=== PATIENT | male | born 1970 | race Caucasian/White ===

== ENCOUNTER 2017-11-29 07:30 | Inpatient (IN) | payer OTHER ==
[~2017-11-29] VITALS: Ht 172.7 cm; Wt 93.0 kg
[~2017-11-29 07:30] MED LIST: LIPITOR40 MG ORAL; NAPROXEN500 M2 ORAL; NORCO 5-325 TA1 EACH ORAL; UNISOM SLEEP AI25 MG PO
[2018-01-04 06:19] VITALS: BP 123/82
[2018-01-04] MEDS ORDERED: ZOLPIDEM TARTRA10 MG ORAL (06:41)
[2018-01-04] MEDS ORDERED: CLONAZEPAM2 MG PO (06:41)
--- NOTE | 2018-01-04 06:51 | Anethesia Preoperative Eval ---
Anesthesia Pre-op PMH/ROS General Date of Evaluation: January 04, 2018 Time of Evaluation: 07:15 Anesthesiologist: ASA Score: ASA 2 Mallampati Score Class I : Soft palate, uvula, fauces, pillars visible Class II: Soft palate, uvula, fauces visible Class III: Soft palate, base of uvula visible Class IV: Only hard plate visible Mallampati Classification: Class II Surgeon: brittnee Diagnosis: back pain Anesthesia History: none Family History: no anesthesia problems Allergies: Coded Allergies: No Known Allergies (Unverified , 01/04/18) Past Medical History Cardiovascular: Reports: arrhythmia - h/o SVT; Denies: HTN, CAD, NC, valve dz, other Pulmonary: Denies: asthma, COPD, KERVIN, other Gastrointestinal/Genitourinary: Denies: GERD, CRI, ESRD, other Neurologic/Psychiatric: Reports: depression/anxiety; Denies: dementia, CVA, TIA, other Endocrine: Denies: DM, hypothyroidism, steroids, other HEENT: Denies: cataract (L), cataract (R), glaucoma, SH[place]HONE-[place] (L), SHOSHONE-[place] (R), other Hematology/Immune: Denies: anemia, DVT, bleeding disorder, other Musculoskeletal/Integumentary: Denies: OA, RA, DJD, DDD, edema, other PSxH Narrative: laminectomy 2016 Anesthesia Pre-op Phys. Exam Physician Exam Last Vital Signs Date Time Temp Pulse Resp B/P (MAP) Pulse Ox O2 Delivery O2 Flow Rate FiO2 01/04/18 06:19 98.0 73 18 123/82 97 Room Air 98.0 Constitutional: NAD Cardiovascular: RRR Respiratory: CTA Gastrointestinal: S/NT/ND Airway Exam Mallampati Score: Class II MO: full ROM: full Teeth: intact, other - implants x 2 teeth Dentures: no upper, no lower Anesthesia Pre-op A/P Labs all WNL Studies Pre-op Studies: EKG - normal Risk Assessment & Plan Assessment: ASA 2, okay to proceed Plan: Lisa Osorio M.D. January 04, 2018 06:51
[2018-01-04] MEDS ORDERED: Lidocaine 1% MPF 10mg/ml 5ml ONE (06:53)
[2018-01-04] MEDS ORDERED: Ketorolac 30mg Inj ONE (06:53)
[2018-01-04] MEDS ORDERED: Dexamethasone 4mg/ml vial ONE (06:53)
[2018-01-04] MEDS ORDERED: Propofol 200mg/20ml IV ONE (06:53)
[2018-01-04] MEDS ORDERED: Sugammadex Sodium 200mg/2ml vial IV ONE (07:00)
[2018-01-04] MEDS ORDERED: ceFAZolin sod 2 GM in D5W 110 ML IVPB ONE (07:00)
[2018-01-04] MEDS ORDERED: Zemuron 50mg/5ml Inj IV ONE (07:00)
[2018-01-04] MEDS ORDERED: Vancomycin 1gm inj IVPB ONE (07:19)
[2018-01-04] MEDS ORDERED: EPINEPHrine 1mg/1ml Amp ONE (07:19)
[2018-01-04] MEDS ORDERED: Thrombin 5000 units TOPIC ONE (07:19)
[2018-01-04] MEDS ORDERED: Bupivacaine 0.5% Inj 30 ml vial INJ ONE (07:20)
[2018-01-04] MEDS ORDERED: Bacitracin 50000 Units Vial ONE ×2 (07:20→07:30)
--- NOTE | 2018-01-04 07:22 | Pre-Procedure Note/Attestation ---
Pre-Procedure Note/Attestation Complete Prior to Procedure Procedure Narrative: Reexploration L5S1 with decompression, instrumentation, interbody fusion, posterolateral fusion, allograft, bone marrow aspirate Indications for Procedure Pre-Operative Diagnosis: lumbar spondylosis and stenosis with disc protrusion l5s1 Attestation I attest that I discussed the nature of the procedure; its benefits; risks and complications; and alternatives (and the risks and benefits of such alternatives ), prior to the procedure, with the patient (or the patient's legal sales development representative). I attest that, if there was a reasonable possibility of needing a blood transfusion, the patient (or the patient's legal sales development representative) was given the [place] Department of Health Services standardized written summary, pursuant to the [place] Blood Safety Act ([place] Health and Safety Code # 1645, as amended). I attest that I re-evaluated the patient just prior to the surgery and that there has been no change in the patient's H&P, except as documented below: Jeffrey Arellano MD January 04, 2018 07:22
[2018-01-04] MEDS ORDERED: D5 1/2NS 1,000 ML IV SCH (07:23)
[2018-01-04 07:24] LABS: ANION GAP 9 mmol/L (5-15); BLOOD UREA NITROGEN 13 mg/dL (7-18); CALCIUM 8.6 MG/DL (8.5-10.1); CARBON DIOXIDE 25 MMOL/L (21-32); CHLORIDE 105 MMOL/L (98-107); POTASSIUM 3.8 MMOL/L (3.5-5.1); SODIUM 139 MMOL/L (136-145)
[2018-01-04] MEDS ORDERED: fentaNYL 100 mcg/2 mL IV ONE (07:26)
[2018-01-04] MEDS ORDERED: Midazolam 2mg/2ml Inj ONE (07:26)
[2018-01-04] MEDS ORDERED: Morphine Sulfate 4mg/ml Inj SUBQ PRN ×2 (07:30)
[2018-01-04] MEDS ORDERED: HYDROcodone/Acetamin 7.5/325 tab ORAL PRN ×2 (07:30)
[2018-01-04] MEDS ORDERED: Naloxone 0.4mg/ml Inj IVP PRN (07:30)
[2018-01-04] MEDS ORDERED: Norco 5mg/325mg tab ORAL PRN (07:30)
[2018-01-04 07:32] LABS: BASOPHILS % (AUTO) 1.3 % (0.0-2.0); EOSINOPHILS % (AUTO) 1.7 % (0.0-3.0); HEMATOCRIT 46.6 % (42.0-52.0); HEMOGLOBIN 16.4 G/DL (14.2-18.0); LYMPHOCYTES % (AUTO) 32.6 % (20.0-45.0); MEAN CORPUSCULAR VOLUME 90 FL (80-99); MONOCYTES % (AUTO) 7.2 % (1.0-10.0); NEUTROPHILS % (AUTO) 57.3 % (45.0-75.0); PLATELET COUNT 195 K/UL (150-450); RED BLOOD COUNT 5.19 M/UL (4.70-6.10); RED CELL DISTRIBUTION WIDTH 11.7 % (11.6-14.8); WHITE BLOOD COUNT 8.8 K/UL (4.8-10.8)
[2018-01-04 08:00] VITALS: BP 127/76
[2018-01-04] MEDS ORDERED: Docusate 100mg cap ORAL SCH (09:00)
[2018-01-04] MEDS ORDERED: ceFAZolin sod 1 GM in D5W 55 ML IV SCH (14:00)
[2018-01-09] VITALS (13 sets, daily range): BP systolic 101–130; BP diastolic 57–87
[2018-01-09] MEDS ORDERED: Zemuron 50mg/5ml Inj IV ONE (06:13)
[2018-01-09] MEDS ORDERED: LR 1000ml 1,000 ML IVLG SCH (06:32)
[2018-01-09] MEDS ORDERED: Bupivacaine 0.5% Inj 30 ml vial INJ ONE (06:34)
[2018-01-09] MEDS ORDERED: Thrombin 5000 units TOPIC ONE ×2 (06:34→08:05)
[2018-01-09] MEDS ORDERED: EPINEPHrine 1mg/1ml Amp ONE (06:34)
[2018-01-09] MEDS ORDERED: Vancomycin 1gm inj IVPB ONE (06:34)
[2018-01-09] MEDS ORDERED: Bacitracin 50000 Units Vial ONE ×2 (06:35→11:47)
[2018-01-09] MEDS ORDERED: Dexamethasone 4mg/ml vial ONE (06:40)
[2018-01-09] MEDS ORDERED: Lidocaine 1% MPF 10mg/ml 5ml ONE (06:40)
[2018-01-09] MEDS ORDERED: Sodium Chloride 10ml vial INJ ONE ×2 (06:40→08:07)
[2018-01-09] MEDS ORDERED: Hydromorphone 0.5mg/0.5ml inj IVP PRN ×2 (06:45→15:30)
[2018-01-09] MEDS ORDERED: DiphenhydrAMINE 50mg/ml Inj IVP PRN ×2 (06:45→20:00)
[2018-01-09] MEDS ORDERED: Ketorolac 30mg Inj IV PRN ×2 (06:45)
[2018-01-09] MEDS ORDERED: fentaNYL 100 mcg/2 mL IV PRN (06:45)
[2018-01-09] MEDS ORDERED: oxyCODONE HCL/Acetaminophen 5/325mg ORAL PRN (06:45)
[2018-01-09] MEDS ORDERED: Metoclopramide 10mg/2ml Inj IVP PRN (06:45)
[2018-01-09] MEDS ORDERED: HYDROcodone/Acetamin 7.5/325 tab ORAL PRN ×3 (06:45→07:00)
[2018-01-09] MEDS ORDERED: Norco 5mg/325mg tab ORAL PRN ×2 (06:45→07:00)
[2018-01-09] MEDS ORDERED: Acetaminophen (Non formulary) 100 ML IV ONE (06:45)
[2018-01-09] MEDS ORDERED: Labetalol 5mg/ml 20ml vial IV PRN (06:45)
[2018-01-09] MEDS ORDERED: LORazepam Inj 2mg/ml 1ml IV PRN (06:45)
[2018-01-09] MEDS ORDERED: Midazolam 2mg/2ml Inj IVP PRN (06:45)
[2018-01-09] MEDS ORDERED: Atropine Inj 1mg/10ml Syr IV PRN (06:45)
--- NOTE | 2018-01-09 06:49 | Anethesia Preoperative Eval ---
Anesthesia Pre-op PMH/ROS General Date of Evaluation: January 09, 2018 Time of Evaluation: 06:51 Anesthesiologist: Guero ASA Score: ASA 3 Mallampati Score Class I : Soft palate, uvula, fauces, pillars visible Class II: Soft palate, uvula, fauces visible Class III: Soft palate, base of uvula visible Class IV: Only hard plate visible Mallampati Classification: Class II Surgeon: Adan Diagnosis: Back Pain Surgical Procedure: TLIF L5-S1 Anesthesia History: none Family History: no anesthesia problems Allergies: Coded Allergies: No Known Allergies (Unverified , 01/04/18) Medications: see eMAR Past Medical History Cardiovascular: Reports: arrhythmia - Hx SVT, other - HL Neurologic/Psychiatric: Reports: depression/anxiety Other: obesity - BMI 33 PSxH Narrative: Laminectomy 2016 Anesthesia Pre-op Phys. Exam Physician Exam Last Vital Signs Date Time Temp Pulse Resp B/P (MAP) Pulse Ox O2 Delivery O2 Flow Rate FiO2 01/09/18 06:19 97.6 78 18 126/78 97 Room Air 97.6 Constitutional: NAD Neurologic: CN 2-12 intact Cardiovascular: RRR Respiratory: CTA Gastrointestinal: S/NT/ND Airway Exam Mallampati Score: Class II MO: full ROM: full Teeth: intact Anesthesia Pre-op A/P Risk Assessment & Plan Assessment: ASA 3 Plan: GA, BIS, GlideScope Status Change Before Surgery: No Pre-Antibiotics Dru Grams Ancef IV Given Within 1 Hr of Incision: Yes Time Given: 07:16 Baldev Gray MD January 09, 2018 06:49
[2018-01-09] MEDS ORDERED: fentaNYL 100 mcg/2 mL IV ONE ×4 (06:50→11:56)
--- NOTE | 2018-01-09 06:59 | Pre-Procedure Note/Attestation ---
Pre-Procedure Note/Attestation Complete Prior to Procedure Procedure Narrative: Re-exporation L5-S1 with revision decompression, L5-S1 fusion and instrumentation and interbody fusion Indications for Procedure Pre-Operative Diagnosis: lumbar spondylosis and stenosis with disc protrusion l5s1 Attestation I attest that I discussed the nature of the procedure; its benefits; risks and complications; and alternatives (and the risks and benefits of such alternatives ), prior to the procedure, with the patient (or the patient's legal communications representative). I attest that, if there was a reasonable possibility of needing a blood transfusion, the patient (or the patient's legal communications representative) was given the [place] Department of Health Services standardized written summary, pursuant to the [place] Blood Safety Act ([place] Health and Safety Code # 1645, as amended). I attest that I re-evaluated the patient just prior to the surgery and that there has been no change in the patient's H&P, except as documented below: Jeffrey Arellano MD January 09, 2018 06:59
[2018-01-09] MEDS ORDERED: LR 1000ml ONE (07:00)
[2018-01-09] MEDS ORDERED: Labetalol 5mg/ml 20ml vial IV ONE (07:00)
[2018-01-09] MEDS ORDERED: Naloxone 0.4mg/ml Inj IVP PRN ×2 (07:00→20:30)
[2018-01-09] MEDS ORDERED: Sterile Water Irrig 1000ml IRRIG ONE (07:00)
[2018-01-09] MEDS ORDERED: ceFAZolin sod 2 GM in D5W 110 ML IVPB ONE (07:00)
[2018-01-09] MEDS ORDERED: NS Irrig 1000ml ONE (07:00)
[2018-01-09] MEDS ORDERED: NS Irrig 1000ml IRRIG ONE ×2 (07:00→11:30)
[2018-01-09] MEDS ORDERED: Lidocaine 1% Plain 30 ml INJ ONE ×4 (07:08→11:49)
--- NOTE | 2018-01-09 07:32 | Pre-Procedure Note/Attestation ---
Pre-Procedure Note/Attestation Complete Prior to Procedure Procedure Narrative: Re-exploration L5-S1 with decompression, instrumentation and fusion at L5-S1, interbody fusion and instrumentation with bone marrow aspiration Indications for Procedure Pre-Operative Diagnosis: lumbar spondylosis and stenosis with disc protrusion l5s1 Attestation I attest that I discussed the nature of the procedure; its benefits; risks and complications; and alternatives (and the risks and benefits of such alternatives ), prior to the procedure, with the patient (or the patient's legal loan representative). I attest that, if there was a reasonable possibility of needing a blood transfusion, the patient (or the patient's legal loan representative) was given the [place] Department of Health Services standardized written summary, pursuant to the [place] Blood Safety Act ([place] Health and Safety Code # 1645, as amended). I attest that I re-evaluated the patient just prior to the surgery and that there has been no change in the patient's H&P, except as documented below: Jeffrey Arellano MD January 09, 2018 07:32
--- NOTE | 2018-01-09 08:32 | Immediate Post-Op Evaluation ---
Immediate Post-Op Evalulation Immediate Post-Op Evalulation Procedure: TLIF L5-S1 Date of Evaluation: January 09, 2018 Time of Evaluation: 14:20 IV Fluids: 2000 LR Blood Products: 1000 Alb Estimated Blood Loss: 1000 Urinary Output: 800 Blood Pressure Systolic: 122 Blood Pressure Diastolic: 75 Pulse Rate: 83 Respiratory Rate: 16 O2 Sat by Pulse Oximetry: 98 Pain Score (1-10): 3 Nausea: No Vomiting: No Complications 0 Patient Status: awake, reacts, patent, extubated, none Hydration Status: adequate Dru Grams Ancef IV Given Within 1 Hr of Incision: Yes Time Given: 07:16 Baldev Gray MD January 09, 2018 08:32
[2018-01-09] MEDS ORDERED: Tranexamic Acid 1,000 MG in NS 55 ML IVPB ONE (10:30)
[2018-01-09] MEDS ORDERED: Propofol 200mg/20ml IV ONE (11:50)
[2018-01-09 12:31] LABS: HEMOGLOBIN 14.2 G/DL (14.2-18.0); MEAN CORPUSCULAR VOLUME 92 FL (80-99); PLATELET COUNT 187 K/UL (150-450); RED BLOOD COUNT 4.48 M/UL (4.70-6.10); RED CELL DISTRIBUTION WIDTH 11.8 % (11.6-14.8); WHITE BLOOD COUNT 11.5 K/UL (4.8-10.8)
--- NOTE | 2018-01-09 13:55 | Brief Operative Note ---
Immediate Post Operative Note Operative Note Pre-op Diagnosis: lumbar spondylosis and stenosis with disc protrusion l5s1 Post-op Diagnosis: same as pre-op Findings: consistent w/pre-op dx studies Surgeon: MADDIE Comprehensive Ophthalmologist: MINH Anesthesiologist: NEIL Anesthesia: general Specimen: yes Complications: none Condition: stable Fluids: 2000 CC CRYSTALLOID AND 1000CC ALBUMIN Estimated Blood Loss: volume - 1000CC Drains: hemovac Implant(s) used?: Yes Jeffrey Arellano MD January 09, 2018 13:55
[2018-01-09 14:34] LABS: HEMATOCRIT 36.1 % (42.0-52.0); HEMOGLOBIN 12.3 G/DL (14.2-18.0); MEAN CORPUSCULAR VOLUME 93 FL (80-99); PLATELET COUNT 168 K/UL (150-450); RED CELL DISTRIBUTION WIDTH 11.7 % (11.6-14.8); WHITE BLOOD COUNT 13.9 K/UL (4.8-10.8)
--- NOTE | 2018-01-09 14:38 | Diagnostic Imaging Report ---
Indication: Back pain Comparison: None Findings: 2 fluoroscopic views of the lumbar spine were obtained. Fluoroscopic time 111 seconds. Lower lumbar fusion demonstrated at L5-S1 with pedicle screws and fusion rods. IMPRESSION: Intraoperative imaging
[2018-01-09 15:11] LABS: ANION GAP 13 mmol/L (5-15); BLOOD UREA NITROGEN 14 mg/dL (7-18); CALCIUM 7.8 MG/DL (8.5-10.1); CARBON DIOXIDE 21 MMOL/L (21-32); CHLORIDE 104 MMOL/L (98-107); CREATININE 1.2 MG/DL (0.55-1.30); SODIUM 138 MMOL/L (136-145)
[2018-01-09] MEDS ORDERED: Hydromorphone 0.5mg/0.5ml inj ONE (15:29)
[2018-01-09] MEDS: Docusate 100mg cap ORAL SCH ×2 (17:36→17:45)
[2018-01-09] MEDS: D5 1/2NS 1,000 ML IV SCH (17:41)
[2018-01-09] MEDS: ceFAZolin sod 1 GM in D5W 110 ML IV SCH (20:30)
[2018-01-09] MEDS ORDERED: Morphine Sulfate 2mg/ml Inj IV PRN (20:30)
[2018-01-09] MEDS ORDERED: Rate Change PCA 1 Each MISC PRN (20:30)
[2018-01-09] MEDS: PCA Morphine 1mg/ml 30 ML IV PRN (20:33)
[2018-01-09] MEDS ORDERED: PCA Education Pamphlet MISC ONE (21:00)
[2018-01-09] MEDS: Morphine Sulfate 4mg/ml Inj SUBQ PRN (23:07)
[2018-01-10] VITALS: BP 105/60
[2018-01-10] MEDS: D5 1/2NS 1,000 ML IV SCH ×3 (04:19→22:39)
[2018-01-10 04:29] VITALS: BP 111/69
[2018-01-10] MEDS: Morphine Sulfate 4mg/ml Inj SUBQ PRN ×4 (05:24→21:23)
[2018-01-10] MEDS: ceFAZolin sod 1 GM in D5W 110 ML IV SCH ×2 (05:24→13:47)
[2018-01-10 05:29] LABS: BASOPHILS % (AUTO) 0.4 % (0.0-2.0); EOSINOPHILS % (AUTO) 0.1 % (0.0-3.0); HEMATOCRIT 33.5 % (42.0-52.0); HEMOGLOBIN 11.3 G/DL (14.2-18.0); LYMPHOCYTES % (AUTO) 10.6 % (20.0-45.0); MEAN CORPUSCULAR VOLUME 93 FL (80-99); MONOCYTES % (AUTO) 5.8 % (1.0-10.0); NEUTROPHILS % (AUTO) 83.2 % (45.0-75.0); PLATELET COUNT 154 K/UL (150-450); RED BLOOD COUNT 3.62 M/UL (4.70-6.10); RED CELL DISTRIBUTION WIDTH 11.7 % (11.6-14.8); WHITE BLOOD COUNT 13.7 K/UL (4.8-10.8)
[2018-01-10] MEDS: PCA shift volume MISC SCH ×2 (07:29→19:00)
[2018-01-10] MEDS: PCA Morphine 1mg/ml 30 ML IV PRN ×2 (07:35→22:10)
[2018-01-10 08:00] VITALS: BP 115/68
[2018-01-10] MEDS: Docusate 100mg cap ORAL SCH ×2 (08:15→17:18)
--- NOTE | 2018-01-10 10:34 | 48 Hour Post Anesthesia Eval ---
Post Anesthesia Evaluation Procedure: TLIF L5-S1 Date of Evaluation: January 10, 2018 Blood Pressure Systolic: 111 0: 69 Pulse Rate: 86 Respiratory Rate: 18 Temperature (Fahrenheit): 97.6 O2 Sat by Pulse Oximetry: 98 Airway: patent Nausea: No Vomiting: No Pain Intensity: 2 Hydration Status: adequate Cardiopulmonary Status: at baseline Mental Status/LOC: patient returned to baseline Post-Anesthesia Complications: 0 Follow-up care needed: N/A - further care as per primary team SANDRA RYAN M.D. January 10, 2018 10:34
[2018-01-10 12:00] VITALS: BP 134/71
[2018-01-10] MEDS ORDERED: Morphine Sulfate 4mg/ml Inj IV PRN (13:00)
--- NOTE | 2018-01-10 13:00 | History and Physical ---
History of Present Illness General Date patient seen: January 10, 2018 Present Illness HPI 47 year old male with hx of SVT, lumbar spondylosis and stenosis with disc protrusion L5S1, presented for surgical intervention. Pt is admitted postoperative to surgical floor for postop care. Allergies: Coded Allergies: No Known Allergies (Unverified , 01/04/18) Medication History Scheduled Clonazepam (Clonazepam), 2 MG PO DAILY, (Reported) Scheduled PRN Zolpidem Tartrate* (Zolpidem Tartrate*), 10 MG ORAL BEDTIME PRN for Insomnia, ( Reported) Discontinued Medications Atorvastatin Calcium* (Lipitor*), 40 MG ORAL DAILY, (Reported) Discontinued Reason: Pt stopped taking med Doxylamine Succinate (Unisom Sleep Aid), 25 MG PO PRN, (Reported) Discontinued Reason: Pt stopped taking med Hydrocodone Bit/Acetaminophen 5-325* ([place] 5-325*), 1 TAB ORAL Q6H PRN for For Pain, (Reported) Discontinued Reason: Pt stopped taking med Naproxen* (Naproxen*), 500 MG ORAL TWICE A DAY PRN for For Pain, (Reported) Discontinued Reason: Pt stopped taking med Patient History Healthcare decision maker belinda() Resuscitation status Full Code Advanced Directive on File Yes Past Medical/Surgical History Past Medical/Surgical History: (1) SVT (supraventricular tachycardia) (2) Lumbar radiculopathy Review of Systems All Other Systems: negative except mentioned in HPI Physical Exam General Appearance: WD/WN Lines, tubes and drains: peripheral HEENT: normocephalic, atraumatic Neck: non-tender, normal alignment Respiratory/Chest: chest wall non-tender, lungs clear Breasts: no masses Cardiovascular/Chest: normal peripheral pulses Abdomen: normal bowel sounds, non tender Genitourinary/Rectal: normal genital exam Skin Exam: normal pigmentation Last 24 Hour Vital Signs Date Time Temp Pulse Resp B/P (MAP) Pulse Ox O2 Delivery O2 Flow Rate FiO2 01/10/18 12:39 97.6 01/10/18 10:34 207.7 86 18 98 01/10/18 08:19 97.6 01/10/18 08:00 98.1 79 18 115/68 98 98.1 01/10/18 07:40 18 01/10/18 07:40 18 5/30/18 07:35 97.6 01/10/18 04:29 97.6 86 18 111/69 98 97.6 01/10/18 04:00 18 01/10/18 00:00 97.6 79 20 105/60 96 97.6 01/09/18 23:07 97.7 01/09/18 20:24 97.7 82 19 101/57 97 97.7 01/09/18 18:58 97.6 01/09/18 17:37 97.6 01/09/18 17:30 97.7 86 18 126/65 97 Nasal Cannula 3.0 97.7 01/09/18 16:30 97.6 87 18 130/65 96 Nasal Cannula 3.0 97.6 01/09/18 16:15 97.2 91 18 108/66 96 Nasal Cannula 3.0 97.2 01/09/18 15:30 93 16 115/76 97 Nasal Cannula 3.0 01/09/18 15:16 98.6 93 16 110/76 97 Nasal Cannula 3.0 98.6 01/09/18 15:00 93 16 112/76 98 Nasal Cannula 3.0 01/09/18 14:45 91 16 110/74 98 Simple Mask 8.0 01/09/18 14:30 92 16 112/73 98 Simple Mask 8.0 01/09/18 14:19 92 16 116/87 98 Simple Mask 8.0 01/09/18 14:14 94 16 122/81 98 Simple Mask 8.0 01/09/18 14:10 83 16 98 01/09/18 14:09 98.5 76 16 122/75 98 Simple Mask 8.0 98.5 Intake and Output 01/09/18 01/10/18 19:00 07:00 Intake Total 3800 ml 880 ml Output Total 2340 ml 2500 ml Balance 1460 ml -1620 ml Intake Oral 480 ml IV Total 2800 ml 400 ml Other 1000 ml Output Urine Total 1200 ml 2500 ml Drainage Total 140 ml Estimated Blood Loss 1000 ml # Voids 3 Laboratory Tests Test 01/09/18 14:20 01/10/18 05:05 White Blood Count 13.9 K/UL (4.8-10.8) H 13.7 K/UL (4.8-10.8) H Red Blood Count 3.90 M/UL (4.70-6.10) L 3.62 M/UL (4.70-6.10) L Hemoglobin 12.3 G/DL (14.2-18.0) L 11.3 G/DL (14.2-18.0) L Hematocrit 36.1 % (42.0-52.0) L 33.5 % (42.0-52.0) L Mean Corpuscular Volume 93 FL (80-99) 93 FL (80-99) Mean Corpuscular Hemoglobin 31.5 PG (27.0-31.0) H 31.2 PG (27.0-31.0) H Mean Corpuscular Hemoglobin Concent 34.1 G/DL (32.0-36.0) 33.6 G/DL (32.0-36.0) Red Cell Distribution Width 11.7 % (11.6-14.8) 11.7 % (11.6-14.8) Platelet Count 168 K/UL (150-450) 154 K/UL (150-450) Mean Platelet Volume 8.6 FL (6.5-10.1) 9.9 FL (6.5-10.1) Neutrophils (%) (Auto) % (45.0-75.0) 83.2 % (45.0-75.0) H Lymphocytes (%) (Auto) % (20.0-45.0) 10.6 % (20.0-45.0) L Monocytes (%) (Auto) % (1.0-10.0) 5.8 % (1.0-10.0) Eosinophils (%) (Auto) % (0.0-3.0) 0.1 % (0.0-3.0) Basophils (%) (Auto) % (0.0-2.0) 0.4 % (0.0-2.0) Differential Total Cells Counted 100 Neutrophils % (Manual) 88 % (45-75) H Lymphocytes % (Manual) 10 % (20-45) L Monocytes % (Manual) 1 % (1-10) Eosinophils % (Manual) 1 % (0-3) Basophils % (Manual) 0 % (0-2) Band Neutrophils 0 % (0-8) Platelet Estimate Adequate Platelet Morphology Normal Red Blood Cell Morphology Normal Sodium Level 138 MMOL/L (136-145) Potassium Level 5.0 MMOL/L (3.5-5.1) Chloride Level 104 MMOL/L (98-107) Carbon Dioxide Level 21 MMOL/L (21-32) Anion Gap 13 mmol/L (5-15) Blood Urea Nitrogen 14 mg/dL (7-18) Creatinine 1.2 MG/DL (0.55-1.30) Estimat Glomerular Filtration Rate > 60 mL/min (>60) Glucose Level 151 MG/DL (74-106) H Calcium Level 7.8 MG/DL (8.5-10.1) L Height (Feet): 5 Height (Inches): 8.00 Weight (Pounds): 205 Medications Current Medications Medications (Trade) Dose Ordered Sig/Jacobo Route PRN Reason Start Time Stop Time Status Last Admin Dose Admin Acetaminophen/ Hydrocodone Bitart ([place] 5/325) 1 tab Q3H PRN ORAL pain score 1-3 01/11/18 20:30 01/18/18 20:29 Acetaminophen/ Hydrocodone Bitart ([place] 7.5/325) 1 tab Q3H PRN ORAL pain score 4-6 01/11/18 20:30 01/18/18 20:29 Acetaminophen/ Hydrocodone Bitart ([place] 7.5/325) 2 tab Q3H PRN ORAL pain scale 7-10 01/11/18 20:30 01/18/18 20:29 Cefazolin Sodium 1 gm/Dextrose 110 ml @ 220 mls/hr Q8H IV 01/09/18 22:00 01/10/18 14:29 01/10/18 05:24 Clonazepam (KlonoPIN) 2 mg DAILY ORAL 01/10/18 09:00 01/17/18 08:59 01/10/18 08:16 Dextrose/Sodium Chloride 1,000 ml @ 100 mls/hr Q10H IV 01/09/18 17:30 02/08/18 17:29 01/10/18 04:19 Diphenhydramine HCl (Benadryl) 25 mg Q6H PRN IVP Itching/Pruritis 01/09/18 20:00 01/11/18 19:59 Docusate Sodium (Colace) 100 mg TWICE A DAY ORAL 01/09/18 09:00 02/08/18 08:59 01/10/18 08:15 Miscellaneous Medication (GETTER WELDER Rate Change) 1 ea DAILY PRN MISC rate change 01/09/18 20:30 01/11/18 20:29 Miscellaneous Medication (GETTER WELDER shift volume) 1 ea Q12HR@0700,1900 MISC 01/10/18 07:00 01/12/18 06:59 01/10/18 07:29 Morphine Sulfate 30 ml @ 0 mls/hr Q24H PRN IV For Pain 01/09/18 20:30 01/11/18 20:29 01/10/18 07:35 Morphine Sulfate (Morphine Sulfate) 2 mg Q2H PRN IV Moderate Pain (Pain Scale 4-6) 01/09/18 20:30 01/11/18 20:29 Morphine Sulfate (Morphine Sulfate) 4 mg Q3H PRN SUBQ Severe Pain (Pain Scale 7-10) 01/09/18 20:30 01/11/18 20:29 01/10/18 12:39 Naloxone HCl (Narcan) 0.1 mg PRN PRN IVP RR<12/min, pt unarousable 01/11/18 20:30 02/10/18 20:29 Naloxone HCl (Narcan) 0.1 mg Q1M PRN IVP RR<10/min OR SBP<90 mmHg 01/09/18 20:30 01/11/18 20:29 Nicotine (Nicoderm) 1 patch Q24H TDERMAL 01/09/18 20:00 02/08/18 19:59 01/09/18 20:31 Ondansetron HCl (Zofran) 4 mg Q6H PRN IVP Nausea & Vomiting 01/09/18 20:00 01/11/18 19:59 01/10/18 04:20 Zolpidem Tartrate (Ambien) 5 mg HSPRN PRN ORAL Insomnia 01/09/18 17:15 01/16/18 17:14 Assessment/Plan Problem List: (1) Lumbar radiculopathy ICD Codes: M54.16 - Radiculopathy, lumbar region SNOMED: [id number] Assessment/Plan titrate pain meds symptomatic treatment dvt prophylaxis Ian Kulkarni MD January 10, 2018 13:00
[2018-01-10 16:00] VITALS: BP 150/49
--- NOTE | 2018-01-10 18:27 | General Progress Note ---
Progress Note Progress Note doing well post op. No leg pain or paresthesias. gretchen diet. avss a and o times 3 dressing cdi 5/5 motor in mily ue and the le lt intact hv 150 a: doing well post op p: oob pt brace labs medicine follow up follow up tomorrow Jeffrey Arellano MD January 10, 2018 18:27
[2018-01-10 20:00] VITALS: BP 128/84
[2018-01-10] MEDS: Zolpidem 5mg tab ORAL PRN (20:22)
[2018-01-11] VITALS: BP 127/80
--- NOTE | 2018-01-11 01:00 | Operative Note - Dictated ---
DATE OF OPERATION: 01/09/2018 PREOPERATIVE DIAGNOSIS: Status post decompression at L5-S1 with recurrent disk protrusion, annular tear and disk height collapse with stenosis and lower extremity radiculopathy. POSTOPERATIVE DIAGNOSIS: Status post decompression at L5-S1 with recurrent disk protrusion, annular tear and disk height collapse with stenosis and lower extremity radiculopathy. PROCEDURE PERFORMED: 1. Re-exploration laminotomy and foraminotomy, right L5-S1. 2. Pedicle screw instrumentation at L5-S1. 3. Posterolateral arthrodesis at L5-S1. 4. Posterior interbody fusion at L5-S1 with placement of PEEK interbody device. 5. Bone marrow aspiration, right posterior iliac crest for fusion. 6. Placement of allograft and local autograft for fusion. 7. Microscope for microdissection. SURGEON: Jeffrey Arellano M.D. BRIDGE CREW MEMBER: Marlon Soler M.D. ANESTHESIA: General endotracheal anesthesia. ANESTHESIOLOGIST: Baldev Gray M.D. INTRAOPERATIVE FINDINGS: Disk height collapse, spondylosis, disk protrusion, stenosis at L5-S1. EBL: 1000 mL. FLUIDS: 2000 mL of crystalloid and 1000 mL of albumin. INDICATIONS: This is a pleasant gentleman who has failed nonoperative treatments after the lumbar microdiscectomy and continued to have severe intractable low back pain and lower extremity radiculopathy. My recommendation for the above was given. The patient wished to proceed. Risks, alternatives and benefits were discussed with the patient. Risks include, but are not limited to, anesthesia complications including , medical complications, including bleeding, infection, neurovascular injury, liver failure, kidney failure, myocardial infarction, CSF leak, dural tear, pars fracture, instability, reherniation, and pseudarthrosis, screw cutoff, and screw failure. The patient understood and wished to proceed. Written and verbal consent was given. DESCRIPTION OF OPERATION: The patient was brought into the operating room, supine on a stretcher. Subsequently, appropriate IV lines were placed and 2 g of Ancef was administered. Anesthesia was induced and the patient was successfully intubated. Sequential compression devices were placed onto the bilateral lower extremities. A Munoz was placed under sterile conditions. SSEP and neurophysiological leads were placed. Stimulus-evoked EMG and dermatome-evoked potentials were also recorded, which remained stable throughout the case. Stimulus evoked EMG revealed safe placement of the pedicle screws as well. At this point, all bony prominences were well padded. The abdomen was assured to lay freely. The patient was turned over onto the Michel frame table. All bony prominences were well padded. Preoperative fluoroscopy was done to plan the incision. A previous incision was found over the midline, which was healed successfully and the skin was cleaned. At this point, the intraoperatively sterilely draped microscope was brought into the field and a midline incision was carried out with a scalpel and with monopolar cautery, a subperiosteal dissection at L5-S1 was carried out. A radiopaque marker was placed at the S1 pedicle level and the L5-S1 level was positively identified. The left L5-S1 laminas were virgin laminas, which had previously not undergone laminotomies. The right L5 and the right S1 lamina had previously had laminotomies. There with extensive epidural scar over the posterior epidural space. Attention now first was diverted to the left L5-S1 interspace. Retractors were set in place. At this point, with the use of microscope as well as a high-speed drill, as well as #2 through #5 Kerrison punches, straight and curved curettes and an inter lumbar laminotomy, medial facetectomy, and removal of the ligamentum flavum was first done including complete decompression of the lateral recess and examination of the dural sac and traversing S1 nerve root was accomplished. At this point, attention was diverted to the facetectomy with a high-speed drill and protection of the neural elements, the superior and inferior facets at L5 and S1 were removed. Complete decompression of the exiting L5 nerve root and beautiful exposure of the transforaminal space. Once the bone was removed, it was harvested for later implantation for arthrodesis and was morcellized for future implantation. Now, attention was diverted to the disk space. Neural elements were carefully medially retracted with a nerve root retractor. With a #11 scalpel, a box incision was made in the disk space and with a straight and curved curette as well as Nick curettes, pituitary rongeur, box curettes, and shaver curettes, a radical diskectomy was done at L5-S1. All endplate cartilage was removed. Disk was removed. Endplate bone was well preserved and with a Morenci probe as well as a band-headed long curved curette, a complete and radical diskectomy was accomplished into the contralateral disk space to the right side. All disk material was removed. The disk was copiously irrigated with triple antibiotic solution and at this point, a trial from the [employer] [place] Fortilink System was placed. A 26 mm x 10 mm x 8 mm in height 6 degree lordotic cage now was chosen and packed with bone morphogenic protein and local autograft and allograft. Please note that previously before the diskectomy, a bone marrow aspiration was done through a separate fascial incision of the right posterior iliac crest and 30 mL of bone marrow aspirate was isolated and spun down for later implantation into the disk space. Once the bone marrow aspiration was spun down, the bone marrow was soaked with the Corrine allograft as well as local autograft. This was initially implanted into the anterior interbody space at L5-S1 including the bone marrow aspiration, the Corrine allograft and local autograft as well as bone morphogenic protein. Once this was completed, now the PEEK interbody spacer measuring 26 x 10 x 8 mm was implanted into the interbody space with good recreation of disk height and apposition against the endplates. The PEEK interbody device was stable and found to be in appropriate position at the L5-S1 level. Once this was accomplished, attention was diverted to placement of pedicle screws. At this point, the mammillary processes at L5 and the inferolateral floor of the superior facet at S1 was found and a high-speed drill was used to make a starting point. With a pedicle finder probe, each pedicle was probed appropriately L5 bilaterally and S1 bilaterally and the center of the pedicles were found. This was done with biplanar fluoroscopy. Please note that the intraoperatively sterilely draped microscope was used for microdissection of neural elements during placement of the interbody fusion device as well as during decompression as well as re-exploration, which would be dictated later on the right side. Now back to the pedicle screws, once the center of the pedicles were found with pedicle finder, a ball-tip probe was used to probe the pedicular hubbard and the hubbard were found to be intact and there were no breaches. Attention was first diverted to the right L5 pedicle. The pedicle was appropriately tapped and a 6.5 x 45 mm pedicle screw from the CoreLink System was successfully placed on the right L5 pedicle. The screw had a good purchase and was in good position via biplanar fluoroscopy. Now, attention was diverted to the left S1 pedicle and a 7.5 x 40 mm CoreLink pedicle screw was placed with good purchase and appropriate positioning via biplanar fluoroscopy. During placement of the S1 screw on the right side, the device which attaches to the pedicle screw was found to be loose, this is the device and not the actual screw. The screw powers was found to be loose and did not appropriately attach to the screw for place. Because the device was not at this point working appropriately, I asked that another pedicle screw system to be brought in, which I previously used and this was the Medacta System. The left L5 screw and the right S1 screw now were placed with the Medacta System. Ball-Tipped probes were again used at the each pedicle that had not yet had a pedicle screw and the following pedicle screws were successfully now placed from the Medacta System on the left L5 7.0 x 40 mm and on the right S1 8.0 x 35 mm. Each screw had appropriate purchase and looked in a good position via biplanar fluoroscopy. Now that the pedicle screws were placed, stimulus evoked EMG of each pedicle screw was done at 18 milliamps of current. There was no conduction into the respective nerve roots. Now, attention was diverted to re-exploration on the right side at L5-S1 with the use of a high-speed drill as well as straight and curved curette and #2 and #3 Kerrison rongeurs. A re-exploration laminotomy and foraminotomy at right L5-S1 level was done. There was extensive amount of scar, which was carefully dissected away from the dural sac and attention was diverted to the exiting right L5 exiting nerve root, which was completely decompressed with the use of #2 and #3 Kerrison punches. Valsalva 40 mmHg was done. There was no CSF leak. The wound was copiously irrigated with triple antibiotic solution. An extensive decortication of the transverse processes and the lateral aspect of the pars on the right side was done for later arthrodesis. The annulotomy site was filled with 4 mL of a fibrin Tisseel glue and now attention was diverted to placement of the rods. Two 40 mm rods were placed from the CoreLink System. They sat into the tulips appropriately. Set screws were placed. Torque device was used to complete the tightening of the set screws. Final AP and lateral fluoroscopy was done revealed all instrumentation to be in good position and now, a posterolateral arthrodesis was done with local autograft, Wythe allograft and note Corrine allograft was placed into the interbody device as well as the interbody space and now posterolateral arthrodesis was done with local autograft and Wythe allograft and bone marrow aspirate. A medium-sized Hemovac drain was placed subfascially. The dorsal lumbar fascia was closed with #1 Vicryl sutures in a watertight fashion. The subdermal and subcuticular layers were closed with 2-0 Vicryl sutures. All sponge, needle and instrument counts were correct. The skin was closed with Dermabond. Sterile dressing tape was placed. The patient was taken to the recovery room in stable condition and was found to be neurovascularly intact, was hemodynamically stable, and admitted to the hospital. Jeffrey Arellano M.D. DR: CLINTON JOB#: [id number] CC: MAYTE
[2018-01-11] MEDS: Morphine Sulfate 4mg/ml Inj SUBQ PRN (03:22)
[2018-01-11 04:00] VITALS: BP 114/69
[2018-01-11 06:22] LABS: BASOPHILS % (AUTO) 0.8 % (0.0-2.0); EOSINOPHILS % (AUTO) 0.8 % (0.0-3.0); HEMATOCRIT 31.4 % (42.0-52.0); HEMOGLOBIN 10.9 G/DL (14.2-18.0); LYMPHOCYTES % (AUTO) 23.3 % (20.0-45.0); MEAN CORPUSCULAR VOLUME 93 FL (80-99); MONOCYTES % (AUTO) 8.2 % (1.0-10.0); PLATELET COUNT 145 K/UL (150-450); RED BLOOD COUNT 3.37 M/UL (4.70-6.10); RED CELL DISTRIBUTION WIDTH 11.9 % (11.6-14.8)
[2018-01-11] MEDS: PCA shift volume MISC SCH ×2 (07:03→19:27)
[2018-01-11 08:00] VITALS: BP 117/73
[2018-01-11] MEDS: PCA Morphine 1mg/ml 30 ML IV PRN ×2 (08:04→18:01)
[2018-01-11] MEDS: Docusate 100mg cap ORAL SCH ×2 (08:30→18:12)
--- NOTE | 2018-01-11 09:58 | General Progress Note ---
Progress Note Progress Note Pt has LBP. No leg pain. gretchen reg diet. leg pain has resolved. avss a and o times 3 inc cdi dressing changed lt intact in the le calves soft and nt ambulating well with pt hg 10.1 a: doing well p: oob and pt with brace labs medicine follow up reg diet social service will need walker at home pain management Jeffrey Arellano MD January 11, 2018 09:58
[2018-01-11 12:00] VITALS: BP 104/71
--- NOTE | 2018-01-11 12:37 | Pulmonology Progress Note ---
Assessment/Plan Problems: (1) Lumbar radiculopathy Assessment/Plan pain management no new complains symptomatic treatment check cbc, in am dvt prophylaxis Subjective Interval Events: pain is better controlled Allergies: Coded Allergies: No Known Allergies (Unverified , 01/04/18) Objective Last 24 Hour Vital Signs Date Time Temp Pulse Resp B/P (MAP) Pulse Ox O2 Delivery O2 Flow Rate FiO2 01/11/18 08:00 98.8 100 20 117/73 95 Room Air 98.8 01/11/18 08:00 18 01/11/18 04:00 97.2 107 20 114/69 97 97.2 01/11/18 03:52 99.2 01/11/18 03:37 18 01/11/18 03:22 99.2 01/11/18 00:00 99.2 109 18 127/80 98 99.2 01/11/18 00:00 18 01/10/18 22:10 18 01/10/18 22:09 18 01/10/18 21:53 97.6 01/10/18 21:23 97.6 01/10/18 20:00 98.0 93 20 128/84 99 Room Air 98.0 01/10/18 20:00 18 01/10/18 17:20 18 01/10/18 17:18 97.6 01/10/18 16:00 18 01/10/18 16:00 98.2 90 20 150/49 99 Room Air 98.2 01/10/18 12:39 97.6 Intake and Output 01/10/18 01/11/18 19:00 07:00 Intake Total 950 ml 1880 ml Output Total 2150 ml 1005 ml Balance -1200 ml 875 ml Intake Oral 850 ml 780 ml IV Total 100 ml 1100 ml Output Urine Total 2100 ml 1000 ml Drainage Total 50 ml 5 ml # Voids 1 2 General Appearance: WD/WN HEENT: normocephalic, atraumatic Respiratory/Chest: lungs clear, normal breath sounds Cardiovascular: normal rate Genitourinary: normal external genitalia Extremities: no cyanosis Skin: no rash Microbiology Date/Time Source Procedure Growth Status 01/09/18 06:00 Nasal Nares MRSA Culture - Final NO METHICILLIN RESISTANT STAPH AUREUS... Complete Laboratory Tests 01/11/18 06:00: White Blood Count 12.0H, Red Blood Count 3.37L, Hemoglobin 10.9L, Hematocrit 31.4L, Mean Corpuscular Volume 93, Mean Corpuscular Hemoglobin 32.3H, Mean Corpuscular Hemoglobin Concent 34.6, Red Cell Distribution Width 11.9, Platelet Count 145L, Mean Platelet Volume 8.1, Neutrophils (%) (Auto) 67.0, Lymphocytes ( %) (Auto) 23.3, Monocytes (%) (Auto) 8.2, Eosinophils (%) (Auto) 0.8, Basophils (%) (Auto) 0.8 Current Medications Medications (Trade) Dose Ordered Sig/Jacobo Route PRN Reason Start Time Stop Time Status Last Admin Dose Admin Acetaminophen/ Hydrocodone Bitart ([place] 5/325) 1 tab Q3H PRN ORAL pain score 1-3 01/11/18 20:30 01/18/18 20:29 Acetaminophen/ Hydrocodone Bitart ([place] 7.5/325) 1 tab Q3H PRN ORAL pain score 4-6 01/11/18 20:30 01/18/18 20:29 Acetaminophen/ Hydrocodone Bitart ([place] 7.5/325) 2 tab Q3H PRN ORAL pain scale 7-10 01/11/18 20:30 01/18/18 20:29 Clonazepam (KlonoPIN) 2 mg DAILY ORAL 01/10/18 09:00 01/17/18 08:59 01/11/18 08:30 Diphenhydramine HCl (Benadryl) 25 mg Q6H PRN IVP Itching/Pruritis 01/09/18 20:00 01/11/18 19:59 Docusate Sodium (Colace) 100 mg TWICE A DAY ORAL 01/09/18 09:00 02/08/18 08:59 01/11/18 08:30 Famotidine (Pepcid) 20 mg DAILY ORAL 01/10/18 13:45 02/09/18 13:44 01/11/18 08:30 Miscellaneous Medication (ENTRY LEVEL ELECTRICAL ENGINEER Rate Change) 1 ea DAILY PRN MISC rate change 01/09/18 20:30 01/11/18 20:29 Miscellaneous Medication (ENTRY LEVEL ELECTRICAL ENGINEER shift volume) 1 ea Q12HR@0700,1900 MISC 01/10/18 07:00 01/12/18 06:59 01/11/18 07:03 Morphine Sulfate 30 ml @ 0 mls/hr Q24H PRN IV For Pain 01/10/18 13:45 01/11/18 13:44 01/11/18 08:04 Morphine Sulfate (Morphine Sulfate) 4 mg Q3H PRN SUBQ Severe Pain (Pain Scale 7-10) 01/09/18 20:30 01/11/18 20:29 01/11/18 03:22 Morphine Sulfate (Morphine Sulfate) 4 mg Q4H PRN IV For Pain 01/10/18 13:00 01/17/18 12:59 Naloxone HCl (Narcan) 0.1 mg PRN PRN IVP RR<12/min, pt unarousable 01/11/18 20:30 02/10/18 20:29 Naloxone HCl (Narcan) 0.1 mg Q1M PRN IVP RR<10/min OR SBP<90 mmHg 01/09/18 20:30 01/11/18 20:29 Nicotine (Nicoderm) 1 patch Q24H TDERMAL 01/09/18 20:00 02/08/18 19:59 01/10/18 20:11 Ondansetron HCl (Zofran) 4 mg Q6H PRN IVP Nausea & Vomiting 01/09/18 20:00 01/11/18 19:59 01/10/18 04:20 Zolpidem Tartrate (Ambien) 5 mg HSPRN PRN ORAL Insomnia 01/09/18 17:15 01/16/18 17:14 01/10/18 20:22 Ian Kulkanri MD January 11, 2018 12:37
[2018-01-11] MEDS ORDERED: Rate Change PCA 1 Each MISC PRN ×2 (14:30→15:00)
[2018-01-11] MEDS ORDERED: PCA Education Pamphlet MISC ONE (14:30)
[2018-01-11] MEDS ORDERED: Morphine Sulfate 4mg/ml Inj SUBQ PRN (15:00)
[2018-01-11 16:00] VITALS: BP 116/78
[2018-01-11] MEDS ORDERED: PCA shift volume MISC SCH (19:00)
[2018-01-11] MEDS: Morphine Sulfate 4mg/ml Inj IV PRN (19:43)
[2018-01-11 20:00] VITALS: BP 109/67
[2018-01-11] MEDS ORDERED: Norco 5mg/325mg tab ORAL PRN (20:30)
[2018-01-11] MEDS ORDERED: HYDROcodone/Acetamin 7.5/325 tab ORAL PRN ×2 (20:30)
[2018-01-11] MEDS ORDERED: Naloxone 0.4mg/ml Inj IVP PRN (20:30)
[2018-01-11] MEDS: Zolpidem 5mg tab ORAL PRN (23:25)
[2018-01-12] VITALS: BP 105/68
[2018-01-12] MEDS: PCA Morphine 1mg/ml 30 ML IV PRN ×2 (01:55→18:34)
[2018-01-12 04:00] VITALS: BP 107/66
[2018-01-12] MEDS: PCA shift volume MISC SCH ×2 (07:00→19:21)
[2018-01-12 08:00] VITALS: BP 116/68
[2018-01-12 08:12] LABS: BASOPHILS % (AUTO) 0.8 % (0.0-2.0); EOSINOPHILS % (AUTO) 0.9 % (0.0-3.0); HEMATOCRIT 30.3 % (42.0-52.0); HEMOGLOBIN 10.6 G/DL (14.2-18.0); LYMPHOCYTES % (AUTO) 24.5 % (20.0-45.0); MEAN CORPUSCULAR VOLUME 92 FL (80-99); MONOCYTES % (AUTO) 8.1 % (1.0-10.0); NEUTROPHILS % (AUTO) 65.7 % (45.0-75.0); PLATELET COUNT 164 K/UL (150-450); RED BLOOD COUNT 3.31 M/UL (4.70-6.10); RED CELL DISTRIBUTION WIDTH 11.7 % (11.6-14.8); WHITE BLOOD COUNT 12.9 K/UL (4.8-10.8)
[2018-01-12 08:24] LABS: ALANINE AMINOTRANSFERASE 25 U/L (12-78); ALBUMIN 2.6 G/DL (3.4-5.0); ALBUMIN/GLOBULIN RATIO 0.8 (1.0-2.7); ALKALINE PHOSPHATASE 37 U/L (46-116); ANION GAP 8 mmol/L (5-15); ASPARTATE AMINO TRANSFERASE 33 U/L (15-37); BILIRUBIN,TOTAL 0.8 MG/DL (0.2-1.0); BLOOD UREA NITROGEN 9 mg/dL (7-18); CALCIUM 7.8 MG/DL (8.5-10.1); CARBON DIOXIDE 28 MMOL/L (21-32); CHLORIDE 99 MMOL/L (98-107); CREATININE 0.9 MG/DL (0.55-1.30); PHOSPHORUS 3.6 MG/DL (2.5-4.9); POTASSIUM 3.1 MMOL/L (3.5-5.1); SODIUM 135 MMOL/L (136-145)
[2018-01-12] MEDS: Docusate 100mg cap ORAL SCH ×2 (08:50→17:35)
[2018-01-12] MEDS ORDERED: Milk of Magnesia 30ml Ud ORAL PRN (10:30)
[2018-01-12 12:00] VITALS: BP 103/67
--- NOTE | 2018-01-12 12:14 | Pulmonology Progress Note ---
Assessment/Plan Problems: (1) Lumbar radiculopathy Assessment/Plan constipated pain management no new complains symptomatic treatment check cbc, in am dvt prophylaxis Subjective ROS Limited/Unobtainable: No Constitutional: Reports: no symptoms HEENT: Repors: no symptoms Respiratory: Reports: no symptoms Allergies: Coded Allergies: No Known Allergies (Unverified , 01/04/18) Objective Last 24 Hour Vital Signs Date Time Temp Pulse Resp B/P (MAP) Pulse Ox O2 Delivery O2 Flow Rate FiO2 01/12/18 08:00 98.2 106 18 116/68 97 98.2 01/12/18 08:00 18 01/12/18 04:00 98.6 106 18 107/66 98 98.6 01/12/18 04:00 18 01/12/18 00:00 98.4 99 18 105/68 95 Room Air 98.4 01/12/18 00:00 18 01/11/18 20:43 17 01/11/18 20:00 98.8 95 18 109/67 95 Room Air 98.8 01/11/18 18:01 98.3 01/11/18 16:00 98.3 100 20 116/78 95 Room Air 98.3 01/11/18 16:00 18 Intake and Output 01/11/18 01/12/18 19:00 07:00 Intake Total 1300 ml 260 ml Output Total 7 ml Balance 1293 ml 260 ml Intake Oral 1200 ml 260 ml IV Total 100 ml Output Urine Total 6 ml Stool Total 1 ml # Voids 2 General Appearance: WD/WN, no acute distress HEENT: normocephalic Respiratory/Chest: chest wall non-tender, lungs clear Cardiovascular: normal peripheral pulses, normal rate Abdomen: normal bowel sounds, soft, non tender Genitourinary: normal external genitalia Extremities: no cyanosis Neurologic/Psychiatric: sign writer letterer or painter II-XII grossly normal Laboratory Tests 01/12/18 05:45: White Blood Count 12.9H, Red Blood Count 3.31L, Hemoglobin 10.6L, Hematocrit 30.3L, Mean Corpuscular Volume 92, Mean Corpuscular Hemoglobin 32.1H, Mean Corpuscular Hemoglobin Concent 35.1, Red Cell Distribution Width 11.7, Platelet Count 164, Mean Platelet Volume 8.8, Neutrophils (%) (Auto) 65.7, Lymphocytes (% ) (Auto) 24.5, Monocytes (%) (Auto) 8.1, Eosinophils (%) (Auto) 0.9, Basophils ( %) (Auto) 0.8, Sodium Level 135L, Potassium Level 3.1L, Chloride Level 99, Carbon Dioxide Level 28, Anion Gap 8, Blood Urea Nitrogen 9, Creatinine 0.9, Estimat Glomerular Filtration Rate > 60, Glucose Level 106, Calcium Level 7.8L, Phosphorus Level 3.6, Magnesium Level 1.5L, Total Bilirubin 0.8, Aspartate Amino Transf (AST/SGOT) 33, Alanine Aminotransferase (ALT/SGPT) 25, Alkaline Phosphatase 37L, Total Protein 5.9L, Albumin 2.6L, Globulin 3.3, Albumin/ Globulin Ratio 0.8L Current Medications Medications (Trade) Dose Ordered Sig/Jacobo Route PRN Reason Start Time Stop Time Status Last Admin Dose Admin Clonazepam (KlonoPIN) 2 mg DAILY ORAL 01/10/18 09:00 01/17/18 08:59 01/12/18 08:51 Docusate Sodium (Colace) 100 mg TWICE A DAY ORAL 01/09/18 09:00 02/08/18 08:59 01/12/18 08:50 Famotidine (Pepcid) 20 mg DAILY ORAL 01/10/18 13:45 02/09/18 13:44 01/12/18 08:51 Magnesium Hydroxide (Mom) 30 ml DAILYPRN PRN ORAL Constipation 01/12/18 10:30 02/11/18 10:29 01/12/18 10:46 Miscellaneous Medication (BIOPHYSICS TEACHER Rate Change) 1 ea DAILY PRN MISC rate change 01/11/18 15:00 01/13/18 14:59 Miscellaneous Medication (BIOPHYSICS TEACHER shift volume) 1 ea Q12HR@0700,1900 MISC 01/11/18 19:00 01/13/18 18:59 01/12/18 07:00 Morphine Sulfate 30 ml @ 0 mls/hr Q24H PRN IV For Pain 01/11/18 15:00 01/13/18 14:59 01/12/18 01:55 Morphine Sulfate (Morphine Sulfate) 4 mg Q3H PRN SUBQ Severe Pain (Pain Scale 7-10) 01/11/18 15:00 01/13/18 14:59 01/12/18 10:38 Morphine Sulfate (Morphine Sulfate) 4 mg Q4H PRN IV For Pain 01/10/18 13:00 01/17/18 12:59 01/11/18 19:43 Naloxone HCl (Narcan) 0.1 mg PRN PRN IVP RR<12/min, pt unarousable 01/11/18 20:30 02/10/18 20:29 Nicotine (Nicoderm) 1 patch Q24H TDERMAL 01/09/18 20:00 02/08/18 19:59 01/11/18 20:40 Zolpidem Tartrate (Ambien) 5 mg HSPRN PRN ORAL Insomnia 01/09/18 17:15 01/16/18 17:14 01/11/18 23:25 Ian Kulkarni MD Jan 12, 2018 12:14
[2018-01-12] MEDS ORDERED: Docusate 100mg cap ORAL SCH (13:00)
[2018-01-12] MEDS: Lactulose 20gm/30ml UDC ORAL SCH ×2 (13:20→17:35)
--- NOTE | 2018-01-12 14:38 | General Progress Note ---
Progress Note Progress Note DOING BETTER TODAY AMBULATING WELL NO LEG PAIN BACK PAIN IMPROVIN NO BM YET AVSS A AND O TIMES 3 INC CDI DRESSING CHANGED LT INTACT CR LESS THAN 2 SEC 5/5 MOTOR IN UE AND THE LE HG 10.6 AND STABLE A: DOING WELL POST OP OOB AND PT WITH BRACE REG DIET INCREASE FLUID INTAKE DC TOMORROW WITH PAIN MEDS FU IN 7 TO 10 DAYS Jeffrey Arellano MD Jan 12, 2018 14:38
[2018-01-12 16:00] VITALS: BP 108/63
[2018-01-12 20:00] VITALS: BP 113/63
[2018-01-12] MEDS: Miralax 17gm pkt ORAL SCH (21:00)
[2018-01-13] VITALS: BP 103/68
[2018-01-13] MEDS: Morphine Sulfate 4mg/ml Inj IV PRN ×3 (00:05→20:10)
[2018-01-13] MEDS: Zolpidem 5mg tab ORAL PRN ×2 (01:30→22:07)
[2018-01-13] MEDS ORDERED: D5NS 1,000 ML IV SCH (02:00)
[2018-01-13 04:00] VITALS: BP 95/48
[2018-01-13] MEDS: PCA shift volume MISC SCH ×2 (07:29→19:24)
[2018-01-13 08:00] VITALS: BP 106/65
[2018-01-13] MEDS: Docusate 100mg cap ORAL SCH ×2 (08:40→17:42)
[2018-01-13] MEDS: Lactulose 20gm/30ml UDC ORAL SCH ×4 (08:41→17:41)
[2018-01-13] MEDS: Sennosides 8.6mg ORAL SCH ×2 (09:00→09:37)
--- NOTE | 2018-01-13 11:01 | Pulmonology Progress Note ---
Assessment/Plan Problems: (1) Lumbar radiculopathy Assessment/Plan still in a lot of pain pain management consult no new complains symptomatic treatment check cbc, in am dvt prophylaxis Subjective ROS Limited/Unobtainable: No Constitutional: Reports: no symptoms HEENT: Repors: no symptoms Respiratory: Reports: no symptoms Allergies: Coded Allergies: No Known Allergies (Unverified , 01/04/18) Objective Last 24 Hour Vital Signs Date Time Temp Pulse Resp B/P (MAP) Pulse Ox O2 Delivery O2 Flow Rate FiO2 01/13/18 08:00 97.8 105 16 106/65 98 97.8 105 01/13/18 08:00 17 01/13/18 04:00 17 01/13/18 04:00 97.5 101 17 95/48 97 Room Air 97.5 01/13/18 00:00 97.6 98 18 103/68 97 Room Air 97.6 01/12/18 20:00 98.7 109 18 113/63 97 Room Air 98.7 01/12/18 20:00 17 01/12/18 16:50 18 01/12/18 16:00 18 01/12/18 16:00 98.7 103 18 108/63 97 98.7 01/12/18 12:00 18 01/12/18 12:00 98.1 94 18 103/67 97 98.1 Intake and Output 01/12/18 01/13/18 19:00 07:00 Output Total 1 ml Balance -1 ml Stool Total 1 ml General Appearance: WD/WN HEENT: normocephalic Respiratory/Chest: chest wall non-tender, normal breath sounds Cardiovascular: normal rate Abdomen: normal bowel sounds, no organomegaly Extremities: no cyanosis, no clubbing Current Medications Medications (Trade) Dose Ordered Sig/Jacobo Route PRN Reason Start Time Stop Time Status Last Admin Dose Admin Clonazepam (KlonoPIN) 2 mg DAILY ORAL 01/10/18 09:00 01/17/18 08:59 01/13/18 08:40 Docusate Sodium (Colace) 100 mg TWICE A DAY ORAL 01/09/18 09:00 02/08/18 08:59 01/13/18 08:40 Famotidine (Pepcid) 20 mg DAILY ORAL 01/10/18 13:45 02/09/18 13:44 01/13/18 08:40 Lactulose (Cephulac) 30 gm THREE TIMES A DAY ORAL 01/12/18 13:00 02/11/18 12:59 01/13/18 09:37 Magnesium Hydroxide (Mom) 30 ml DAILYPRN PRN ORAL Constipation 01/12/18 10:30 02/11/18 10:29 01/12/18 10:46 Mineral Oil (Fleet's Mineral Oil Enema) 133 ml EVERY OTHER DAY RECTAL 01/14/18 09:00 02/13/18 08:59 Miscellaneous Medication (OUTBOARD MOTOR ASSEMBLER Rate Change) 1 ea DAILY PRN MISC rate change 01/11/18 15:00 01/13/18 14:59 Miscellaneous Medication (OUTBOARD MOTOR ASSEMBLER shift volume) 1 ea Q12HR@0700,1900 MISC 01/11/18 19:00 01/13/18 18:59 01/13/18 07:29 Morphine Sulfate 30 ml @ 0 mls/hr Q24H PRN IV For Pain 01/11/18 15:00 01/13/18 14:59 01/12/18 18:34 Morphine Sulfate (Morphine Sulfate) 4 mg Q3H PRN SUBQ Severe Pain (Pain Scale 7-10) 01/11/18 15:00 01/13/18 14:59 01/12/18 10:38 Morphine Sulfate (Morphine Sulfate) 4 mg Q4H PRN IV For Pain 01/10/18 13:00 01/17/18 12:59 01/13/18 00:05 Naloxone HCl (Narcan) 0.1 mg PRN PRN IVP RR<12/min, pt unarousable 01/11/18 20:30 02/10/18 20:29 Nicotine (Nicoderm) 1 patch Q24H TDERMAL 01/09/18 20:00 02/08/18 19:59 01/12/18 20:23 Polyethylene Glycol (Miralax) 17 gm BEDTIME ORAL 01/12/18 21:00 02/11/18 20:59 Sennosides (Senokot) 8.6 tab DAILY ORAL 01/13/18 09:00 02/12/18 08:59 01/13/18 09:37 Zolpidem Tartrate (Ambien) 5 mg HSPRN PRN ORAL Insomnia 01/09/18 17:15 01/16/18 17:14 01/13/18 01:30 Ian Kulkarni MD Jan 13, 2018 11:01
[2018-01-13] MEDS: PCA Morphine 1mg/ml 30 ML IV PRN (11:50)
[2018-01-13 12:00] VITALS: BP 108/70
[2018-01-13] MEDS ORDERED: PCA Morphine 1mg/ml 30 ML IV PRN (12:00)
[2018-01-13] MEDS ORDERED: Rate Change PCA 1 Each MISC PRN (12:00)
[2018-01-13] MEDS ORDERED: Morphine Sulfate 4mg/ml Inj SUBQ PRN (12:00)
[2018-01-13] MEDS ORDERED: Naloxone 0.4mg/ml Inj IVP PRN (12:00)
[2018-01-13 16:00] VITALS: BP 110/73
[2018-01-13] MEDS ORDERED: Tubing IV Secondary IV ONE (16:07)
[2018-01-13] MEDS ORDERED: D5 1/2NS 1000ml IV ONE (16:07)
--- NOTE | 2018-01-13 17:24 | General Progress Note ---
Progress Note Progress Note INCREASED PAIN THIS MORNING WHEN WAKING NO PAIN WITH AMBULATION. NO LEG PAIN. MORE PAIN WHEN LYING ON THE SIDE ON PLASTIC MIXER SINCE THIS AM AVSS A AND O TIMES 3 INC CDI DRESSING INTACT MOTOR UE AND LE 5/5 LT INTACT UE AND LE CALVES SOFT AND NT A: DOING BETTER P: CONT PAIN MANAGEMENT OOB AND PT WITH BRACE CONT DIET HAD A BM FOLLOW UP TOMORROW Jeffrey Arellano MD Jan 13, 2018 17:24
[2018-01-13 20:00] VITALS: BP 101/58
[2018-01-13] MEDS: Miralax 17gm pkt ORAL SCH (21:00)
[2018-01-13] MEDS: Artificial Tears 1.4% Op Soln BOTH EYES SCH (21:23)
[2018-01-14 04:00] VITALS: BP 102/70
[2018-01-14] MEDS: PCA shift volume MISC SCH ×2 (07:10→19:12)
[2018-01-14 08:00] VITALS: BP 113/72
[2018-01-14] MEDS: Artificial Tears 1.4% Op Soln BOTH EYES SCH ×4 (08:49→21:11)
[2018-01-14] MEDS: Sennosides 8.6mg ORAL SCH (08:49)
[2018-01-14] MEDS: Docusate 100mg cap ORAL SCH ×2 (08:49→17:45)
[2018-01-14] MEDS: Lactulose 20gm/30ml UDC ORAL SCH ×3 (08:54→17:46)
[2018-01-14] MEDS ORDERED: Fleet's Mineral Oil Enema RECTAL SCH (09:00)
--- NOTE | 2018-01-14 10:23 | Pulmonology Progress Note ---
Assessment/Plan Problems: (1) Lumbar radiculopathy Assessment/Plan still in a lot of pain pain management consult no new complains symptomatic treatment check cbc, in am dvt prophylaxis Subjective ROS Limited/Unobtainable: No Allergies: Coded Allergies: No Known Allergies (Unverified , 01/04/18) Objective Last 24 Hour Vital Signs Date Time Temp Pulse Resp B/P (MAP) Pulse Ox O2 Delivery O2 Flow Rate FiO2 01/14/18 08:00 98.1 100 20 113/72 98 Room Air 98.1 01/14/18 06:49 18 01/14/18 06:47 18 01/14/18 04:00 18 01/14/18 04:00 97.8 97 102/70 97.8 01/14/18 00:00 18 01/13/18 20:00 97.6 97 17 101/58 98 Room Air 97.6 01/13/18 20:00 18 01/13/18 16:00 97.8 103 17 110/73 100 97.8 103 01/13/18 16:00 17 01/13/18 12:01 17 01/13/18 12:00 17 01/13/18 12:00 98.2 93 17 108/70 98 98.2 93 Intake and Output 01/13/18 01/14/18 19:00 07:00 Intake Total 840 ml 320 ml Balance 840 ml 320 ml Intake Oral 840 ml 320 ml # Voids 3 2 Objective HEENT: normocephalic, atraumatic Respiratory/Chest: chest wall non-tender, lungs clear Breasts: no masses Cardiovascular: normal peripheral pulses, regular rhythm Abdomen: soft, non tender, no organomegaly Genitourinary: normal external genitalia Extremities: no cyanosis Skin: no rash Current Medications Medications (Trade) Dose Ordered Sig/Jacobo Route PRN Reason Start Time Stop Time Status Last Admin Dose Admin Artificial Tears (Akwa-Tears) 2 drop QID BOTH EYES 01/13/18 21:00 02/12/18 20:59 01/14/18 08:49 Clonazepam (KlonoPIN) 2 mg DAILY ORAL 01/10/18 09:00 01/17/18 08:59 01/14/18 08:49 Diphenhydramine HCl (Benadryl) 25 mg TIDPRN PRN ORAL Itching 01/14/18 08:00 02/13/18 07:59 01/14/18 08:49 Docusate Sodium (Colace) 100 mg TWICE A DAY ORAL 01/09/18 09:00 02/08/18 08:59 01/14/18 08:49 Famotidine (Pepcid) 20 mg DAILY ORAL 01/10/18 13:45 02/09/18 13:44 01/14/18 08:49 Lactulose (Cephulac) 30 gm THREE TIMES A DAY ORAL 01/12/18 13:00 02/11/18 12:59 01/13/18 13:06 Magnesium Hydroxide (Mom) 30 ml DAILYPRN PRN ORAL Constipation 01/12/18 10:30 02/11/18 10:29 01/12/18 10:46 Mineral Oil (Fleet's Mineral Oil Enema) 133 ml EVERY OTHER DAY RECTAL 01/14/18 09:00 02/13/18 08:59 Miscellaneous Medication (ASSISTANT PROFESSOR OF CHEMISTRY Rate Change) 1 ea DAILY PRN MISC rate change 01/13/18 12:00 01/15/18 11:59 Miscellaneous Medication (ASSISTANT PROFESSOR OF CHEMISTRY shift volume) 1 ea Q12HR@0700,1900 MISC 01/13/18 19:00 01/15/18 18:59 01/14/18 07:10 Morphine Sulfate 30 ml @ 0 mls/hr Q24H PRN IV For Pain 01/13/18 12:00 01/15/18 11:59 01/14/18 06:49 Morphine Sulfate (Morphine Sulfate) 4 mg Q4H PRN IV Severe Breakthru Pain (>7) 01/13/18 12:00 01/15/18 11:59 01/13/18 20:10 Naloxone HCl (Narcan) 0.1 mg PRN PRN IVP RR<12/min, pt unarousable 01/13/18 12:00 02/12/18 11:59 Nicotine (Nicoderm) 1 patch Q24H TDERMAL 01/09/18 20:00 02/08/18 19:59 01/13/18 20:10 Polyethylene Glycol (Miralax) 17 gm BEDTIME ORAL 01/12/18 21:00 02/11/18 20:59 Sennosides (Senokot) 8.6 tab DAILY ORAL 01/13/18 09:00 02/12/18 08:59 01/14/18 08:49 Zolpidem Tartrate (Ambien) 5 mg HSPRN PRN ORAL Insomnia 01/09/18 17:15 01/16/18 17:14 01/13/18 22:07 Ian Kulkarni MD Jan 14, 2018 10:23
[2018-01-14] MEDS ORDERED: NS 500ML ONE (11:11)
[2018-01-14] MEDS: Morphine Sulfate 4mg/ml Inj IV PRN ×2 (11:51→19:30)
[2018-01-14 12:00] VITALS: BP 112/63
[2018-01-14 16:00] VITALS: BP 103/70
[2018-01-14 20:00] VITALS: BP 100/60
[2018-01-14] MEDS ORDERED: PCA Morphine 1mg/ml 30 ML IV PRN (20:00)
[2018-01-14] MEDS ORDERED: PCA Education Pamphlet MISC ONE (20:00)
[2018-01-14] MEDS ORDERED: Rate Change PCA 1 Each MISC PRN (20:00)
[2018-01-14] MEDS ORDERED: Morphine Sulfate 2mg/ml Inj IV PRN (20:02)
[2018-01-14] MEDS ORDERED: Naloxone 0.4mg/ml Inj IVP PRN (20:02)
[2018-01-14] MEDS: Miralax 17gm pkt ORAL SCH (21:00)
[2018-01-14] MEDS: Zolpidem 5mg tab ORAL PRN (22:31)
[2018-01-15 04:00] VITALS: BP 114/66
[2018-01-15] MEDS ORDERED: PCA shift volume MISC SCH (07:00)
[2018-01-15 08:00] VITALS: BP 113/69
[2018-01-15] MEDS: Lactulose 20gm/30ml UDC ORAL SCH ×2 (08:34→08:36)
[2018-01-15] MEDS: Docusate 100mg cap ORAL SCH (08:34)
[2018-01-15] MEDS: Artificial Tears 1.4% Op Soln BOTH EYES SCH ×2 (08:34→13:00)
[2018-01-15] MEDS: Morphine Sulfate 4mg/ml Inj SUBQ PRN ×2 (08:56→13:33)
[2018-01-15] MEDS ORDERED: Sennosides 8.6mg ORAL SCH (09:00)
[2018-01-15 12:00] VITALS: BP 112/65
--- NOTE | 2018-01-15 13:10 | Pulmonology Progress Note ---
Assessment/Plan Problems: (1) Lumbar radiculopathy Assessment/Plan pain is better controlled no new complains symptomatic treatment dvt prophylaxis dc home today Subjective ROS Limited/Unobtainable: No Constitutional: Reports: no symptoms HEENT: Repors: no symptoms Allergies: Coded Allergies: No Known Allergies (Unverified , 01/04/18) Objective Last 24 Hour Vital Signs Date Time Temp Pulse Resp B/P (MAP) Pulse Ox O2 Delivery O2 Flow Rate FiO2 01/15/18 12:00 97.7 82 21 112/65 100 Room Air 97.7 01/15/18 12:00 21 01/15/18 08:00 97.7 87 19 113/69 98 Room Air 97.7 01/15/18 08:00 19 01/15/18 04:00 18 01/15/18 04:00 97.7 85 19 114/66 99 Room Air 97.7 01/15/18 00:00 18 01/14/18 20:45 18 01/14/18 20:43 18 01/14/18 20:00 98.1 85 19 100/60 99 Room Air 98.1 01/14/18 20:00 18 01/14/18 16:00 18 01/14/18 16:00 98.5 89 20 103/70 97 98.5 Intake and Output 01/14/18 01/15/18 19:00 07:00 Intake Total 400 ml 200 ml Balance 400 ml 200 ml Intake Oral 400 ml 200 ml # Voids 3 2 Objective HEENT: normocephalic, atraumatic Respiratory/Chest: chest wall non-tender, lungs clear Breasts: no masses Cardiovascular: normal peripheral pulses, regular rhythm Abdomen: soft, non tender, no organomegaly Genitourinary: normal external genitalia Extremities: no cyanosis Skin: no rash Current Medications Medications (Trade) Dose Ordered Sig/Jacobo Route PRN Reason Start Time Stop Time Status Last Admin Dose Admin Artificial Tears (Akwa-Tears) 2 drop QID BOTH EYES 01/13/18 21:00 02/12/18 20:59 01/15/18 08:34 Clonazepam (KlonoPIN) 2 mg DAILY ORAL 01/10/18 09:00 01/17/18 08:59 01/15/18 08:35 Diphenhydramine HCl (Benadryl) 25 mg TIDPRN PRN ORAL Itching 01/14/18 08:00 02/13/18 07:59 01/14/18 08:49 Docusate Sodium (Colace) 100 mg TWICE A DAY ORAL 01/09/18 09:00 02/08/18 08:59 01/15/18 08:34 Famotidine (Pepcid) 20 mg DAILY ORAL 01/10/18 13:45 02/09/18 13:44 01/15/18 08:35 Lactulose (Cephulac) 30 gm THREE TIMES A DAY ORAL 01/12/18 13:00 02/11/18 12:59 01/13/18 13:06 Magnesium Hydroxide (Mom) 30 ml DAILYPRN PRN ORAL Constipation 01/12/18 10:30 02/11/18 10:29 01/12/18 10:46 Mineral Oil (Fleet's Mineral Oil Enema) 133 ml EVERY OTHER DAY RECTAL 01/14/18 09:00 02/13/18 08:59 Miscellaneous Medication (ANIMAL SHELTER MANAGER Rate Change) 1 ea DAILY PRN MISC rate change 01/14/18 20:00 01/16/18 19:59 Miscellaneous Medication (ANIMAL SHELTER MANAGER shift volume) 1 ea Q12HR@0700,1900 MISC 01/15/18 07:00 01/17/18 06:59 01/15/18 07:08 Morphine Sulfate 30 ml @ 0 mls/hr Q24H PRN IV For Pain 01/14/18 20:00 01/16/18 19:59 01/14/18 20:45 Morphine Sulfate (Morphine Sulfate) 2 mg Q2H PRN IV Moderate Pain (Pain Scale 4-6) 01/14/18 20:02 01/16/18 20:01 Morphine Sulfate (Morphine Sulfate) 4 mg Q3H PRN SUBQ Severe Pain (Pain Scale 7-10) 01/14/18 20:02 01/16/18 20:01 01/15/18 08:56 Naloxone HCl (Narcan) 0.1 mg PRN PRN IVP RR<12/min, pt unarousable 01/14/18 20:02 02/13/18 20:01 Nicotine (Nicoderm) 1 patch Q24H TDERMAL 01/09/18 20:00 02/08/18 19:59 6/3/18 20:00 Polyethylene Glycol (Miralax) 17 gm BEDTIME ORAL 01/12/18 21:00 02/11/18 20:59 Sennosides (Senokot) 1 tab DAILY ORAL 01/15/18 09:00 02/14/18 08:59 01/15/18 09:28 Zolpidem Tartrate (Ambien) 5 mg HSPRN PRN ORAL Insomnia 01/09/18 17:15 01/16/18 17:14 01/14/18 22:31 Ian Kulkarni MD Jan 15, 2018 13:10
[2018-01-15] MEDS ORDERED: NORCO 5-325 TA1 EACH ORAL (13:28)
[2018-01-15] MEDS ORDERED: SOMA350 MG PO (13:28)
--- NOTE | 2018-01-16 12:58 | Discharge Summary ---
Discharge Summary Hospital Course Date of Admission January 09, 2018 at 05:35 Date of Discharge Jan 15, 2018 at 14:35 Admitting Diagnosis lumbar spondylosis and stenosis with disc protrusion L5S1 Reason for Hospitalization: elective surgery HPI Jaya Varela is a 47 year old male who was admitted on January 09, 2018 at 05:35 for lumbar spondylosis and stenosis with disc protrusion L5S1 Patient was admitted for elective surgery Consultations dr Kulkarni - IM Procedures s/p 01/09/[address] Arellano 1. Re-exploration laminotomy and foraminotomy, right L5-S1. 2. Pedicle screw instrumentation at L5-S1. 3. Posterolateral arthrodesis at L5-S1. 4. Posterior interbody fusion at L5-S1 with placement of PEEK interbody device. 5. Bone marrow aspiration, right posterior iliac crest for fusion. 6. Placement of allograft and local autograft for fusion. 7. Microscope for microdissection. Hospital Course s/p surgery course of recovery uneventful neurovascular intact dressing C/D/I initially Hemovac, output clsoely monitored, discontinued pain management addressed, pain controlled ambulated with PT with brace on fall precautions maintained IS while in the bed tolerated diet , a/emetic prn voided freely bowel regimen instituted DVT prophayxlis stable for dc dc instructions provided outpatient fup with surgeon in 7-10 days as advised by surgeon FINAL DIAGNOSIS lumbar spondylosis and stenosis with disc protrusion L5S1 lumbar radiculopathy s/p TLIF L5S1 Discharge Medications Continued Medications: Carisoprodol* (Soma*) 350 Mg Tablet 350 MG PO TID, #40 TAB (This prescription has been renewed) Hydrocodone Bit/Acetaminophen 5-325* ([place] 5-325*) 1 Each Tablet 1 TAB ORAL Q6H PRN for For Pain, #50 TAB 0 Refills (This prescription has been renewed) Discharge Condition Upon Discharge: stable Discharge Disposition Patient was discharged to Home () Discharge Instructions Discharge Instructions Special Instructions I have been assigned to complete a D/C Summary on this account. I was not involved in the patient management Alyson Morales NP Jan 16, 2018 12:58
== END 2018-01-15 14:35 | disposition home or self-care (01) | DRG 460 ==
LOC: UNDOADMIN 01-04 05:47 → SDSOVERFLO 01-04 05:47 → 3E 01-09 07:00
PROC: 0SG30AJ Fusion of Lumbosacral Joint with Interbody Fusion Device, Posterior Approach, Anterior Column, Open Approach (ICD-10-PCS; principal; 2018-01-09 07:00)
PROC: 0ST40ZZ Resection of Lumbosacral Disc, Open Approach (ICD-10-PCS; principal; 2018-01-09 07:00)
PROC: 07DR3ZZ Extraction of Iliac Bone Marrow, Percutaneous Approach (ICD-10-PCS; principal; 2018-01-09 07:00)
DX: M48.07 Spinal stenosis, lumbosacral region (principal); I47.1 Supraventricular tachycardia; M51.17 Intervertebral disc disorders with radiculopathy, lumbosacral region; M47.897 Other spondylosis, lumbosacral region
CPT/HCPCS: 36415; 72020; 76001; 80048; 80053; 83735; 84100; 85007; 85025; 85610; 85730; 86850; 86900; 86901; 87081; 94003; 94150; J2250; J2405